=== PATIENT | female | born 1935 | race Caucasian/White ===

== ENCOUNTER 2018-07-02 12:42 | Emergency (ER) | payer MEDICARE, MEDICAID ==
[~2018-07-02] VITALS: Ht 149.9 cm; Wt 44.0 kg
[~2018-07-02 12:42] MED LIST: AMIT-189 PO; ASPI-612 PO; AZEL6DRO5 EACHEYE; CLON-529 PO; COLC0.6T67 PO; ESTR0.5T PO; FURO-150 PO; GEMF600T4 PO; MELO-83 PO; MINO2.5T19 PO; PANT-47 PO; SUL50S OP
[2018-07-02] MEDS ORDERED: normal saline 1000ML IV soln IVB ONE (14:10)
[2018-07-02] MEDS ORDERED: morphine 4 MG/ML inj SYRINge IV PRN (14:10)
[2018-07-02] MEDS ORDERED: ondansetron/PF 4mg/2ml inj IV ONE (14:10)
[2018-07-02] MEDS ORDERED: HYDROcodone/acetaminophen 5mg/325mg tablet PO ONE (15:30)
[2018-07-02 15:40] VITALS: BP 159/67
== END 2018-07-02 15:45 | disposition home or self-care (01) ==
LOC: ER 12:42
DX: S16.1XXA Strain of muscle, fascia and tendon at neck level, initial encounter (principal); E78.00 Pure hypercholesterolemia, unspecified; I10 Essential (primary) hypertension; I25.10 Atherosclerotic heart disease of native coronary artery without angina pectoris; K21.9 Gastro-esophageal reflux disease without esophagitis; Z90.49 Acquired absence of other specified parts of digestive tract; Z90.710 Acquired absence of both cervix and uterus; Z95.1 Presence of aortocoronary bypass graft; Z88.8 Allergy status to other drugs, medicaments and biological substances; Z88.1 Allergy status to other antibiotic agents; W18.09XA Striking against other object with subsequent fall, initial encounter; Y93.89 Activity, other specified; Y92.89 Other specified places as the place of occurrence of the external cause; Y99.8 Other external cause status
CPT/HCPCS: 70450; 72125; 96374; 96375; 99284; J2270; J2405